=== PATIENT | male | born 1970 | race Caucasian/White ===

== ENCOUNTER 2019-11-26 22:42 | Emergency (ER) | payer BC, SELFPAY ==
--- NOTE | ~2019-11-26 | CT_ITS ---
EXAMINATION: CT brain wo con INDICATION: Headache COMPARISON: None TECHNIQUE: Standard unenhanced head CT. The dose-length product (DLP) was 605.33 mGy-cm. The mA was a djusted according to patient size. Iterative reconstruction technique was employed. FINDINGS: There is no intracranial hemorrhage, acute infarction, or abnormal mass lesion. The ventric les are normal. There is no abnormal mass effect or midline shift. The childs-white matter differentiat ion is normal. The basal cisterns are patent. The orbits are normal. The paranasal sinuses, mastoids and calvarium are normal. IMPRESSION: 1. No acute intracranial abnormality. Reviewed, dictated and finalized at location A. NT RELATION SPECIALIST
[2019-11-26 22:37] VITALS: BP 117/100; PULSE 82; RESP 19; TEMP 36.3; O2SAT 97
--- NOTE | 2019-11-26 22:59 | ED.SYNCOPE ---
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 He states that he was in a theater when he began to feel overwhelmed , hot and lightheaded, so he got up and then had a syncopal episode. Per family reports that pt had a syncopal episode and fell face first into a wall. They note that the pt was LOC for less than 10 seconds and that he didn't having any convulsions. The pt reports some lip and nose pain. He notes that he hasn't eaten and has had some EtOH. Per nurses note also reports that the pt used some marijuana. The pt denies any KENDRICK, CP, SOB, N/V/D, or ABD pain. MD complaint: loss of consciousness Onset (ago): minute(s) Duration of episode: 10 -: second(s) Prodromal symptoms: lightheaded and other (felt overwhelmed and hot) Witnessed: Yes - by Bystander Context: standing up and alcohol use Injuries sustained associated with event: face and mouth/tongue Current symptoms: other (lip and nose pain) Related Data Home Medications Medication Instructions Recorded Confirmed Celexa 10 mg PO DAILY 11/26/19 11/26/19 Allergies Allergy/AdvReac Type Severity Reaction Status Date / Time No Known Allergies Allergy Verified 11/26/19 22:44 Review of Systems Review of Systems: All systems reviewed & are unremarkable except as noted in HPI and below Constitutional: Constitutional: Reports other (felt hot - resolved) ENT: Reports nasal trauma, Reports nose pain and Reports other (lip pain) Cardiovascular: Cardiovascular: Denies chest pain and Reports lightheadedness (resolved) Respiratory: Respiratory: Denies dyspnea Gastrointestinal: Gastrointestinal: Denies abdominal pain, Denies diarrhea, Denies nausea and Denies vomiting Neurologic: Reports syncope, Denies headache(s) and Denies convulsions Psychiatric: Psychiatric: Reports anxiety ( overwhelmed - resolved) [facility] Past Medical History Medical History (Updated 11/27/19 @ 00:57 by Corby Milligan MD) Anxiety Surgical History Surgical History (Updated 11/26/19 @ 23:38 by Jaard Carbajal) No history of previous surgery Social History Social History (Updated 11/26/19 @ 23:39 by Jarad Carbajal) Smoking status: Unknown if ever smoked Alcohol intake: current Substance use: current Substance use type: marijuana Gender identity (if verbalized by the patient): Male Exam Narrative: Exam Narrative: GENERAL: Well-appearing, well-nourished, and in no acute distress. HEAD: Normocephalic, atraumatic. EYES: PERRL and EOMI. ENT: Nares with old blood and no active bleeding, mild tenderness over the bridge of the nose, 1 cm laceration left nasal bridge. Mucous membranes moist. Small abrasion midline lower lip intraorally. CHEST: Clear to auscultation. No respiratory distress. HEART: Regular rate and rhythm. Normal peripheral pulses. ABDOMEN: Soft, nontender, nondistended. EXTREMITIES: Normal range of motion. No edema. SKIN: Warm, dry, pale, no rash. NEURO: Alert and oriented x3. Course Course Emergency Course: Patient informed of results. Laceration repaired. Reports tetanus is up-to-date. Discharge home. Vital Signs Vital signs: Vital Signs Temperature 97.4 F L 11/26/19 22:37 Pulse Rate 82 11/26/19 22:37 Respiratory Rate 19 11/26/19 22:37 Blood Pressure 117/100 H 11/26/19 22:37 Pulse Oximetry 97 11/26/19 22:37 Temperature 97.4 F L 11/26/19 22:37 Pulse Rate 82 11/27/19 01:00 Respiratory Rate 18 11/27/19 01:00 Blood Pressure 132/77 11/27/19 01:00 Pulse Oximetry 98 11/27/19 01:00 Procedures Laceration Laceration 1: Date: 11/27/19 Time: 00:30 Site: other (Nose) Side (If applicable): left Size (cm):
--- NOTE | 2019-11-26 23:04 | ECG_ITS ---
Measurements Intervals [place] Rate: 81 P: 69 NH: 136 QRS: 32 QRSD: 102 T: 54 QT: 397 QTc: 462 Interpretive Statements SINUS RHYTHM INCOMPLETE RIGHT BUNDLE BRANCH BLOCK NONSPECIFIC T-WAVE ABNORMALITY- INF/LAT LEADS BORDERLINE ECG Electronically Signed On 11-27-2019 18:39:03 IT COMPLIANCE ANALYST by Tuan Morales D.O.
[2019-11-26] MEDS: SODIUM CHLORIDE 0.9% IV 1,000 ML 999 ML IV CONT (23:24)
[2019-11-26 23:39] LABS: Basophils Percent Auto 0.3 % (0.2-1.2); Eosinophils Percent Auto 0.3 % (0-4.4); Hematocrit 42.7 % (42.0-52.0); Immature Granulocyte Absolute 0.06 K/mm3 (0.00-0.031); Immature Granulocyte Percent A 0.7 % (0-0.5); Lymphocytes Percent Auto 25.2 % (18.3-44.2); Mean Corpuscular HGB Conc 32.8 g/dl (32-36); Mean Corpuscular Hemoglobin 27.6 pg (26-34); Mean Corpuscular Volume 84.1 fl (80-100); Mean Platelet Volume 10.3 fl (7.4-10.4); Monocytes Absolute Auto 0.7 K/mm3 (0.1-0.6); Monocytes Percent Auto 7.6 % (2.6-8.5); Neutrophils Absolute Auto 5.8 K/mm3 (1.3-6.7); Neutrophils Percent Auto 65.9 % (45.5-73.1); Platelet Count Result 292 k/mm3 (150-375); Red Blood Count 5.08 M/mm3 (4.6-6.20); Red Cell Distribution Width 12.5 % (11.5-14.5); White Blood Count 8.7 K/mm3 (4.5-10.0)
[2019-11-26 23:51] LABS: Blood Urea Nitrogen 18 mg/dL (9-20); Calcium 9.6 mg/dL (8.4-10.2); Carbon Dioxide 14 mmol/L (22-30); Chloride 101 mmol/L (98-107); Estimated CRCL calculation 77 ml/min; Estimated Glomerular Filt Rate > 60; Glucose 129 mg/dL (75-110); Potassium 3.5 mmol/L (3.4-5.0); Sodium 138 mmol/L (137-145)
[2019-11-27 01:00] VITALS: BP 132/77; PULSE 82; RESP 18; O2SAT 98
--- NOTE | 2019-12-18 19:17 | PC.NURSE ---
LATE ENTRY This note is being entered to document information to the patient's record. The following information was omitted on [11/26/19], by [Maria C Doty]. 1L NS finished infusing at 00:25
== END 2019-11-27 01:03 | disposition home or self-care (01) ==
PROVIDERS: Emergency Provider Emergency Medicine
DX: S01.21XA Laceration without foreign body of nose, initial encounter (principal); F41.9 Anxiety disorder, unspecified; W01.198A Fall on same level from slipping, tripping and stumbling with subsequent striking against other object, initial encounter
CPT/HCPCS: 12011; 36415; 70450; 80048; 85025; 93005; 96360; 99284; J7030